=== PATIENT | male | born 1960 | race Hispanic/Latino ===

== ENCOUNTER → 2019-07-16 | Day surgery (SDC) | payer BC ==
[~2019-07-16] MED LIST: FENTANYL CITRATE/PF 100MCG/2 ML INJ ONE; HYOSCYAMINE 0.125 MG TAB ONE; MIDAZOLAM HCL 2 MG/2 ML VIAL ONE; PROPOFOL IV EMULSION 10 MG/ML 50 ML VIAL ONE
[2019-07-16 14:40] VITALS: BP 138/85
--- NOTE | 2019-07-16 21:28 | Operative Report ---
DATE OF PROCEDURE: 07/16/2019 SURGEON: Kuldeep Armstrong MD PROCEDURES: EGD with biopsies and a colonoscopy with polypectomy. REFERRING PHYSICIAN: Dr. Justin Torres. INDICATION FOR EGD: Heartburn. INDICATION FOR COLONOSCOPY: Colorectal cancer screening. MEDICATIONS: The patient was done under MAC, please see anesthesiologist's note. PROCEDURE IN DETAIL: With the patient in left lateral decubitus position flexible fiberoptic Olympus gastroscope was introduced into the esophagus under direct visualization without any difficulty. Multiple erosions were noted in the distal esophagus. There was no active bleeding or stigmata of recent hemorrhage. Focal nodularity was noted at the GE junction that was biopsied. The scope was then advanced with ease into the stomach. Mucosa overlying the antrum and the body revealed some patchy erythema and [id number] edema and biopsies were obtained and sent to stain for H pylori. Pylorus was of normal contour and shape was intubated with ease and the scope was advanced all the way to the second portion of the duodenum. Biopsies were obtained from the proximal second portion and duodenal bulb to rule out sprue. The scope was then withdrawn back into the stomach and retroflexed mucosa overlying the fundus and cardia appeared to be within normal limits. The scope was then straightened out it was subsequently withdrawn. The patient tolerated procedure well. IMPRESSION: 1. Erosive esophagitis (LA grade B) esophagitis. 2. Focal nodularity, GE junction biopsied. 3. Gastritis, biopsied biopsies sent to stain for H pylori. 4. Rule out sprue. PLAN: Follow up histology. Initiate Protonix 40 mg one p.o. q.a.m. a.c. The patient was then turned around after adequate lubrication of the anal canal. A flexible fiberoptic Olympus colonoscope was inserted into the rectum with ease and advanced all the way to the cecum. It was then withdrawn slowly. Mucosa overlying the cecum ascending colon transverse colon appeared to be within normal limits. One polyp was hot biopsied from the descending colon. Diverticular disease was noted to involve the sigmoid colon. Two polyps were hot biopsied from the sigmoid colon. One polyp was hot biopsied. One polyp was hot snared from the rectum. The scope was then retroflexed into the distal rectum and small internal hemorrhoids were noted none of which was actively bleeding. The scope was then straightened out it was subsequently withdrawn. The patient tolerated procedure well. Impression. IMPRESSION: 1. Descending colon polyp, hot biopsied. 2. Diverticulosis. 3. Sigmoid colon polyps x2 hot biopsied. 4. Rectal polyps x2 one, hot snared and one hot biopsied. 5. Internal hemorrhoids none actively bleeding. PLAN: Followup histology. Initiate high-fiber, low-fat diet. Initiate high-fiber supplement. The patient might benefit from a followup colonoscopy in 3 years. Kuldeep Armstrong MD [facility] [place] /[id number] cc: Justin Armstrong MD
== END | disposition home or self-care (01) ==
LOC: OR 10:49
PROVIDERS: ATTEND Internal Medicine Gastroenterology
DX: Z12.11 Encounter for screening for malignant neoplasm of colon (principal); K63.5 Polyp of colon; K22.10 Ulcer of esophagus without bleeding; K21.9 Gastro-esophageal reflux disease without esophagitis; K22.8 Other specified diseases of esophagus; K57.30 Diverticulosis of large intestine without perforation or abscess without bleeding; K64.8 Other hemorrhoids; I10 Essential (primary) hypertension; Z88.0 Allergy status to penicillin; Z01.810 Encounter for preprocedural cardiovascular examination; Z68.34 Body mass index [BMI] 34.0-34.9, adult; D12.7 Benign neoplasm of rectosigmoid junction; D12.4 Benign neoplasm of descending colon; K29.50 Unspecified chronic gastritis without bleeding; B96.81 Helicobacter pylori [H. pylori] as the cause of diseases classified elsewhere
CPT/HCPCS: 43239; 45384; 45385; 93005; J2250; J2704; J3010; 45378